=== PATIENT | male | born 1965 | race Caucasian/White ===

== ENCOUNTER 2023-05-06 10:27 | Outpatient (AMB) | payer OTHER, SELFPAY ==
--- NOTE | 2023-05-06 10:33 | A.OFFVIS_ITS ---
Intake Vital Signs 05/06/23 10:37 Height 5 ft 8 in Weight 196 lb BMI 29.8 BP 98/68 Blood Pressure Location Lt brachial Position Sitting Pulse 75 Intake Visit Reasons: Colonoscopy screening Intake Note: Patient new consult for 1st pre colonoscopy screening. Patient denies any GI issues. 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 Accompanied by: Self / Same As Patient Allergies No Known Allergies Allergy (Verified 05/06/23 10:33) Medication List - Last Reconciled 05/06/23 by Lynsey Aranda PA-C levothyroxine 175 mcg PO DAILY HPI HPI Comments History of Present Illness Details A 58 y/o male referred for index screening colonoscopy-his father had colon cancer in his 70s Bowel normal Appetite good No cardiac or respiratory issues Works full-time [employer] Surgical History (Updated 05/06/23 @ 10:48 by Lynsey Aranda PA-C) S/P TKR (total knee replacement) Family History (Updated 05/06/23 @ 11:01 by Lynsey Aranda PA-C) Father Diabetes Colon cancer Mother No problems noted. Social History (Updated 05/06/23 @ 11:03 by Lynsey Aranda PA-C) Household Members: Family Household Members Other:: kids, happily, raising grandson since he is now 5 years old- Alcohol intake: current Alcohol intake frequency: holidays/special occasions only Patient Tobacco Use Status: Never used Tobacco Current occupational status: employed Current occupation: [employer] Review of Systems Const All systems reviewed & are unremarkable except as noted in HPI and below Card Denies chest pain and Denies dyspnea Resp Denies dyspnea GI Denies abdominal pain, Denies bloating, Denies hematochezia, Denies change in bowel habits, Denies heartburn, Denies nausea and Denies vomiting Physical Exam Vital Signs: Last Vital Signs Pulse 75 05/06/23 10:37 BP 98/68 05/06/23 10:37 BMI result Body Mass Index 29.8 Const General: cooperative, healthy appearing, comfortable and no acute distress Orientation/consciousness: patient oriented x3 Limitations: no limitations Eyes Sclerae: sclerae normal Resp Effort & Inspection: normal respiratory effort and able to speak in complete sentences Auscultation: clear to auscultation bilaterally, no rales, no rhonchi and no wheezes Cardio Rate: regular rate Rhythm: regular rhythm Heart sounds: S1 normal heart sound present and S2 normal heart sound present GI Palpation (GI): Soft to palpation and nontender Auscultation: normal bowel sounds Skin General skin exam: no rashes or lesions noted Neuro General: patient oriented x3 Extrem General: Yes full ROM Psych Appearance: grossly normal and well kempt Mental Status: mental status grossly normal Speech and movement: Normal speech and movement present and Clear speech present Affect: normal affect Attitude: cooperative Thought process: Normal thought process present Thought content: Normal thought content present Insight: Good insight present (Psych) Judgement: Good judgement present (Psych) Assessment & Plan Assessment & Plan (1) Family history of colon cancer in father: Comment: Father in his 70s Code(s): Z80.0 - Family history of malignant neoplasm of digestive organs Plan: Reinforced importance of colonoscopy screening (2) Encounter for screening colonoscopy: Comment: Very pleasant Gent, no GI complaints Code(s): Z12.11 - Encounter for screening for malignant neoplasm of colon Plan: Colon Plan Colonoscopy- index- MG prep- Orders: Orders Colonoscopy - GI Use Only Today Z12.11 - Encounter for screening for malignant neoplasm of colon Medications: New bisacodyl (Dulcolax (bisacodyl)) Day before procedure @ 12 noon Take 4 tablets by mouth followed by large glass of water 20 mg (4 x 5 mg) PO ONCE 1 day PRN 4 tabs 0RF colonoscopy prep Z12.11 - Encounter for screening for malignant neoplasm of colon bisacodyl (Dulcolax (bisacodyl)) Day before procedure @ 12 noon Take 4 tablets by mouth followed by large glass of water 20 mg (4 x 5 mg) PO ONCE 1 day PRN 4 tabs 0RF colonoscopy prep Z12.11 - Encounter for screening for malignant neoplasm of colon polyethylene glycol 3350 (Miralax) Take as directed by mouth the day before your procedure. 238 grams PO ONCE 1 day PRN 238 grams 0RF laxative effect Patient Instructions: Index screening colonoscopy MiraLax Gatorade prep, reviewed literature given Encouraged to call questions or concerns Coding Level of Care Code New Pt Level 3 (22960) Diagnoses Family history of colon cancer in father Z80.0 Encounter for screening colonoscopy Z12.11 Time Spent (min) 25
[2023-05-06 10:37] VITALS: BP 98/68; PULSE 75; BMI 29.8
== END 2023-05-06 11:27 | disposition home or self-care (01) ==
PROVIDERS: PCP Hospitalist; Visit Provider Physician Assistant
DX: Z80.0 Family history of malignant neoplasm of digestive organs (principal); Z12.11 Encounter for screening for malignant neoplasm of colon
CPT/HCPCS: 99203

== ENCOUNTER → 2023-05-06 10:27 | Outpatient (BNVA) | payer OTHER, SELFPAY | PROVIDERS: PCP Hospitalist; Visit Provider Physician Assistant ==

== ENCOUNTER 2023-08-27 11:59 | Day surgery (SDC) | payer OTHER, SELFPAY ==
[2023-08-25 14:56] VITALS: BMI 29.8
--- NOTE | 2023-08-27 12:06 | P.CONAN_ITS ---
[facility] Active Problems Active Problems: All Active Problems Family history of colon cancer in father (Acute) Encounter for screening colonoscopy (Acute) Past Medical History Medical History Hypothyroid Family history of colon cancer Family History Family History (Updated 05/06/23 @ 11:01 by Lynsey Aranda PA-C) Father Diabetes Colon cancer Mother No problems noted. Family history of problems with anesthesia: No Surgical History Surgical History S/P TKR (total knee replacement) History of Problems with Anesthesia: No Social History Social History (Updated 05/06/23 @ 11:03 by Lynsey Aranda PA-C) Household Members: Family Household Members Other:: kids, happily, raising grandson since he is now 5 years old- Alcohol intake: current Alcohol intake frequency: 0-2 drinks per day Patient Tobacco Use Status: Former Tobacco user Have you been hit, kicked, punched, or otherwise hurt by someone within the past year? If so, by whom?: No Are you DNR?: No Advance Directives: No Advance Directives Information Provided: Yes Nutrition Risks: No Nutritional Risk Current occupational status: employed Current occupation: [id number] Meds Allergies Allergy/AdvReac Type Severity Reaction Status Date / Time No Known Allergies Allergy Verified 05/06/23 10:33 Home Medications ?Medication ?Instructions ?Recorded ?Confirmed ?Last Taken ?Type levothyroxine 175 mcg capsule 175 mcg PO DAILY 05/06/23 08/25/23 Unknown History Exam Height,Weight and Vital Signs: Height 5 ft 8 in Weight 88.904 kg Airway Mallampati Class: II TM Dist: >3cm Neck ROM: Full Partial: Upper Heart: rrr Lungs: cta Assessment and Plan Assessment Anesthesia Assessment: Anesthesia Plan Discussed and Chart Reviewed Final Anesthetic Review Family History of Problems with Anesthesia: No History of Problems with Anesthesia: No NPO: Yes ASA Class: II Final Preanesthetic Review: No Changes in Pt Med Stat and Meds/Allgs Chart Reviewed Patient Risk: Low Procedure Risk: Low Anesthetic Plan Anesthetic Plan: MAC: Disposition: Standard PACU
[2023-08-27] MEDS: Lactated Ringers 1,000 ML 100 ML IVCONT (13:41)
--- NOTE | 2023-08-27 13:47 | MHC.SHP ---
Pre-Procedural Eval Section A - 24 Hr Update-Section A only Date of Service: 08/27/23 Section B - Complete if H&P > 30 days Chief Complaint: Encounter for screening for malignant neoplasm of Details of Present Illness: fh of cRC-father Relevant Family History (Specify if Yes): Yes Relevant Social History: None Present Medications: see Short Stay Collaborative assessment Medical History: Significant History (hypothyroidism ) History of Previous Operations: Relevant previous surgery/procedure and date(s) (S/P TKR (total knee replacement)) Allergies: Allergies Allergy/AdvReac Type Severity Reaction Status Date / Time No Known Allergies Allergy Verified 05/06/23 10:33 Review of Systems Sugical H&P ROS: Negative: Constitution, Cardiovascular, Respiratory, Neurological, Psychiatric, Hem-Onc, Allergic/Immunologic, Gastrointestinal, Genitourinary, Musculoskeletal, Integumentary, Endocrine and Eyes/Ears/Nose/Throat Exam Surgical H&P Exam: Normal: HEENT, Normal: Heart, Normal: Lungs, Normal: Extremities, Normal: Abdomen, Normal: Skin and Normal: Neurological Plan Diagnosis/Plan: Unchanged I have reviewed the history and physical and performed a pertinent physical examination on my patient. No changes have occurred unless specified. Time Spent With Patient Time: Total time managing care of this patient today ____ minutes.
--- NOTE | 2023-08-27 14:14 | P.OPN-COLO_ITS ---
Colonoscopy Operative Note Operative Note Date of Service: 08/27/23 Narrative: Operative Information Procedure Description: Colonoscopy Indication: screening, FH of CRC in father aged 70 Anesthesia: MAC COLONOSCOPY Instrument: Olympus variable stiffness pediatric scope 190L Colonoscopy Monitoring: Vital signs and clinical assessment, continuous EKG monitoring, Pulse oximetry, Carbon Dioxide monitoring and blood pressure monitoring were done throughout the procedure. Colon withdrawal time was 8 minutes. Procedure: The patient was placed in the left lateral decubitis position and pre-procedure medications were administered. After a digital rectal examination of the ano-rectum, the video colonoscope was inserted into the rectum and advanced through the colon to the cecum/TI. The colonoscope was slowly withdrawn in a retrograde panoramic fashion and the colon mucosa was carefully examined including a retroflexed view of the rectum. Findings and interventions are described below. Procedure Difficulty: easy Findings: Terminal Ileum-normal Cecum:normal Right sided retroflexion- normal Ascending Colon: normal Transverse Colon -normal Descending Colon:normal Sigmoid Colon: normal Rectum: Retroflexion with small internal hemorrhoids seen, grade I Anorectum - normal Intervention: none Colon preparation: [place] Bowel Preparation Scale Right colon; 2 Transverse colon: 2 Left colon; 2 (0 = Unprepared colon segment with mucosa not seen due to solid stool that cannot be cleared. 1 = Portion of mucosa of the colon segment seen, but other areas of the colon segment not well seen due to staining, residual stool and/or opaque liquid. 2 = Minor amount of residual staining, small fragments of stool and/or opaque liquid, but mucosa of colon segment seen well. 3 = Entire mucosa of colon segment seen well with no residual staining, small fragments of stool or opaque liquid) Impression and Post Procedure Diagnosis: internal hemorrhoids Plan: High fiber diet leaflet Avoid straining at stool, epsom salts and sitz bath, anusol supps or cream Repeat Colonoscopy in 10 years or earlier if clinically indicated -- (although father had CRC he was over 70-hence 5 yr schedule for colonoscopy does not need to be followed unless patient has any red flags symptoms) Above findings were reviewed with the patient and relevant handouts were provided if indicated.
[2023-08-27 14:57] VITALS: BP 92/55; PULSE 70; RESP 16; TEMP 36.4; O2SAT 95
[2023-08-27 15:13] VITALS: BP 107/67; PULSE 60; RESP 15; O2SAT 98
[2023-08-27 15:28] VITALS: BP 120/81; PULSE 62; RESP 17; TEMP 36.6; O2SAT 96
--- OUTSIDE RECORDS SUMMARY | 2023-08-28 08:25 | XMS_ITS | Patient Health Record ---
Author Organization [id number] Address [address] [place] [address] Care Team Providers Care It Teacher Name Role Phone ROSE MARY BARRAGAN Primary Care Provider ALLERGIES No Known Allergies RESULTS Component Value Reference Range Notes Prostate-Specific Ag-[id number] Reviewed date:07/02/2023 07:45:36 AM Interpretation: Performing Lab:[facility] [place], [facility], Phone - [phone], Director - Gabe Notes/Report: Prostate Specific Ag 1.2 0.0-4.0 ng/mL Jamee ECLIA methodology. . According to the [place] [employer], Serum PSA should decrease and remain at undetectable levels after radical prostatectomy. The AUA defines biochemical recurrence as an initial PSA value 0.2 ng/mL or greater followed by a subsequent confirmatory PSA value 0.2 ng/mL or greater. Values obtained with different assay methods or kits cannot be used interchangeably. Results cannot be interpreted as absolute evidence of the presence or absence of malignant disease. LP+Non-HDL Cholesterol-[id number] Reviewed date:07/02/2023 03:55:06 PM Interpretation: Performing Lab:[facility] [place], [facility] [place], Phone - [phone], Director - MDYasminey Notes/Report: Cholesterol, Total 230 100-199 mg/dL Triglycerides 93 0-149 mg/dL HDL Cholesterol 61 >39 mg/dL VLDL Cholesterol Mate[place] 16 5-40 mg/dL LDL Chol Calc ([facility]) 153 0-99 mg/dL Non-HDL Cholesterol 169 0-129 mg/dL Comment: TSH reflex to [id number] Reviewed date:07/02/2023 07:45:33 AM Interpretation: Performing Lab:[facility] [place], [employer], Phone - [phone], Director - Tomásy Notes/Report: TSH 0.940 0.450-4.500 uIU/mL Comp. Metabolic Panel ([id number] Reviewed date:07/02/2023 07:45:44 AM Interpretation: Performing Lab:[facility] [place], [address] [facility], [place], Phone - [phone], Director - Gabe Notes/Report: Glucose 94 70-99 mg/dL BUN 17 8-27 mg/dL Creatinine 0.92 0.76-1.27 mg/dL eGFR 95 >59 mL/min/1.73 BUN/Creatinine Ratio 18 10-24 Sodium 142 134-144 mmol/L Potassium 4.5 3.5-5.2 mmol/L Chloride 103 96-106 mmol/L Anion Gap 14.0 10.0-18.0 mmol/L Carbon Dioxide, Total 25 20-29 mmol/L Calcium 9.6 8.6-10.2 mg/dL Protein, Total 7.0 6.0-8.5 g/dL Albumin 4.3 3.8-4.9 g/dL Globulin, Total 2.7 1.5-4.5 g/dL A/G Ratio 1.6 1.2-2.2 Bilirubin, Total 0.3 0.0-1.2 mg/dL Alkaline Phosphatase 71 44-121 IU/L AST (SGOT) 16 0-40 IU/L ALT (SGPT) 17 0-44 IU/L REASON FOR REFERRAL Reason colonoscopy Diagnosis 1 Encounter for screen ing for malignant neoplasm of colon (Z12.11) Referral Organization [facility] Referring Provider First Name ROSE MARY Referring Provider Last Name ROSAURA Referring Provider Speciality Internal M edicine Referred Provider Specialty Gastroentero logy General Notes Sent referral to [facility] Gastro Department - [address] [place] [address] [address] [place], [place] [address] [address] w/ fax# [phone] (sent) phone # [phone]. , Office will call pt for appt.Joesph Ceasar 02/28/2023 11:56:38 AM > Clinical Notes called [facility] Gastro De partment lvm advised to update us on referral status provided callback phone# [phone]., Fawad Pink 03/06/2023 11:47:49 AM >, called [facility] Gastro Department lvm advised to update us on referral status provided callback phone# [phone]., Fawad Pink 03/21/2023 03:46:56 PM >, called [facility] Gastro Department was advised no chart for pt. no referral receive. Refaxed: 03/28/2023., Fawad Pink 03/28/2023 10:39:20 AM > , called [facility] Gastro Department scheduled pt. 05/06/2023 10:30am. They will also mail him a letter regarding appt. info. Called pt. lvm provided date and time of appt. -05/06/2023 10:30am. Also provided [facility] Gastro Department - [address] [place] [address] Dr [place], [place] [address] phone # [phone]., Fawad Pink 04/02/2023 02:09:09 PM > Referral Priority Routine MEDICATIONS Medication SIG (Take, Route, Frequency, Duration) Notes Start Date End Date Status Lipitor 10 MG 1 tablet Orally Once a day for 30 days 07/02/2023 Active Levothyroxine Sodium 175 MCG 1 tablet in the morning on an empty stomach Orally Once a day Active IMMUNIZATIONS Vaccine Route Administration Date Status Comme nts Flu IM Intramuscular 02/28/2023 Administered SOCIAL HISTORY Tobacco Use: Social History Observation Description Date Details (start date - stop date) Former Smoker NA - NA Sex Assigned At : Social History Observation Description Sex Assigned At Unknown Tobacco Use/Smoking Question Answer Notes Are you a former smoker How long has it been since you last smoked? 1-5 years PROBLEMS Problem Type ICD Code Onset Dates Problem Status W/U Status Risk SNOMED Code Notes Problem Hypothyroidism, unspecified (E03.9) Active confirmed Hypothyroidism (52579065) Problem Mixed hyperlipidemia (E78.2) Active confirmed Mixed hyperlipidemia (598230147) Problem Personal history of nicotine dependence (Z87.891) Active confirmed Nicotine dependence (99270823) VITAL SIGNS Heart Rate 75 /min 02/28/2023 Temperature 97.6 degrees Fahrenheit 02/28/2023 Oximetry 97 % 02/28/2023 Blood pressure diastolic 88 mm Hg 02/28/2023 Height 67 in 02/28/2023 Blood pressure systolic 122 mm Hg 02/28/2023 Weight 161.8 lbs 02/28/2023 BMI 25.34 kg/m2 02/28/2023 Encounters Encounter Location Date Provider Diagnosis [facility] [address] [facility] [address] [place] [address] 02/28/2023 ROSE MARY BARRAGAN Mixed hyperlipidemia E78.2 ; Hypothyroidism, unspecified E03.9 and Encounter for screening for malignant neoplasm of prostate Z12.5 [facility] [address] [facility] [address] [place] [address] 07/02/2023 ROSE MARY BARRAGAN Mixed hyperlipidemia E78.2 ASSESSMENTS Encounter Date Diagnosis Assessment Notes Treatment Notes Treatment Clinical Notes 02/28/2023 Hypothyroidism, unspecified (ICD-10 - E03.9) 02/28/2023 Mixed hyperlipidemia (ICD-10 - E78.2) 07/02/2023 Mixed hyperlipidemia (ICD-10 - E78.2) 02/28/2023 Encounter for screening for malignant neoplasm of prostate (ICD-10 - Z12.5) PLAN OF TREATMENT Pending Test Test Name Order Date Lipid Panel-[id number] 07/02/2023 Future Test Test Name Order Date COMPREHENSIVE METABOLIC PANEL 02/28/2023 LIPID PANEL 02/28/2023 PSA, SCREEN 02/28/2023 TSH WITH REFLEX TO FT4 02/28/2023 Next Appt Details Provider Name:ROSE MARY BARRAGAN , 09/10/2023 01:00:00 PM, [address] [place] [address] [address], [place], [address], Insurance Providers Payer Name Payer Address Payer Phone Subscriber Number Group Number Insured Name Patient Relationship to Insured Coverage Start Date Coverage End Date [employer] [address] [place] [phone] [id number] Danny Gtz Self - patient is the insured MEDICAL (GENERAL) HISTORY Medical History History ICD Code hypothyroidism Surgical History Surgery Date(Month/Year) left total knee replacement 2016
== END 2023-08-27 16:02 | disposition home or self-care (01) ==
PROVIDERS: Visit Provider Internal Medicine Gastroenterology
PROC: 0DJD8ZZ Inspection of Lower Intestinal Tract, Via Natural or Artificial Opening Endoscopic (ICD-10-PCS; CPT 45378; principal; 2023-08-27 14:00)
DX: Z12.11 Encounter for screening for malignant neoplasm of colon (principal); Z80.0 Family history of malignant neoplasm of digestive organs; K64.0 First degree hemorrhoids; E03.9 Hypothyroidism, unspecified; Z79.899 Other long term (current) drug therapy
CPT/HCPCS: 45378; J2704

== ENCOUNTER → 2023-08-27 11:59 | Outpatient (BNV) | payer OTHER, SELFPAY | PROVIDERS: Visit Provider Internal Medicine Gastroenterology | DX: Z12.11 Encounter for screening for malignant neoplasm of colon (principal); Z80.0 Family history of malignant neoplasm of digestive organs; K64.0 First degree hemorrhoids | CPT/HCPCS: 45378 ==